=== PATIENT | female | born 1970 | race Two or more races ===

== ENCOUNTER 2020-04-28 14:30 | Outpatient (CLI) | payer OTHER ==
[~2020-04-28 14:30] MED LIST: SYNTHROID50 MCG PO
== END 2020-04-28 14:47 | disposition home or self-care (01) ==
LOC: NUCLEAR 14:30
PROVIDERS: ATTEND Internal Medicine Sports Medicine
DX: M81.0 Age-related osteoporosis without current pathological fracture (principal)

== ENCOUNTER 2024-04-03 12:44 | Outpatient (CLI) | payer OTHER | END 2024-04-03 12:55 | disposition home or self-care (01) | LOC: NUCLEAR 12:44 | PROVIDERS: ATTEND Internal Medicine Sports Medicine | DX: M81.0 Age-related osteoporosis without current pathological fracture (principal) ==

== ENCOUNTER 2024-04-28 08:40 | Outpatient (CLI) | payer OTHER ==
[2024-04-28 09:45] LABS: HEMOGLOBIN 12.4 g/dL (12.0-15.00); MEAN CELL VOLUME 89.8 fL (80.00-100.00); MEAN CORPUSCULAR HEMOGLOBIN 30.1 pg (27.00-32.0); MEAN CORPUSCULAR HGB CONC 33.6 g/dl (32.0-36.0); PLATELET COUNT 236 K/uL (150-450); RED BLOOD COUNT 4.12 M/uL (4.00-6.00); RED CELL DISTRIBUTION WIDTH 13.8 % (11.5-14.5)
[2024-04-28 09:49] LABS: URINE APPEARANCE Clear; URINE BILIRRUBIN Negative (NEGATIVE); URINE BLOOD Negative; URINE COLOR Yellow; URINE GLUCOSE Negative (NEGATIVE); URINE KETONE Negative (NEGATIVE); URINE LEUKOCYTE Trace; URINE NITRATE Negative; URINE PROTEIN Negative (NEGATIVE); URINE UROBILINOGEN 0.2 E.U./dl
[2024-04-28 09:50] LABS: URINE BACTERIA 391.8 uL (0.0-1933); URINE EPITHELIAL CELLS 15.6 uL (0.0-38.8); URINE RBC 7.4 uL (0.0-20.8); URINE WBC 23.3 uL (0.0-23.2)
[2024-04-28 10:50] LABS: BILIRUBIN TOTAL 1.49 mg/dL (0.3-1.2); CHOL HDL RATIO 3.6 (0-5.0); CREATININE SERUM 0.76 mg/dL (0.55-1.02); GFR 79.31; GLOBULINA 3.8 G/DL (2.4-3.5); POTASSIUM 3.39 mEq/L (3.5-5.1); T4 FREE 1.44 NG/ML (0.76-1.46); TOTAL PROTEIN 7.8 gm/dL (6.4-8.2); TSH 0.463 uIU/mL (0.358-3.74)
== END 2024-04-28 08:47 | disposition home or self-care (01) ==
LOC: LAB 08:40
PROVIDERS: ATTEND Internal Medicine Sports Medicine
DX: E55.9 Vitamin D deficiency, unspecified (principal); D64.9 Anemia, unspecified; E11.9 Type 2 diabetes mellitus without complications; E78.2 Mixed hyperlipidemia; I10 Essential (primary) hypertension; E03.8 Other specified hypothyroidism

== ENCOUNTER 2024-05-26 09:06 | Outpatient (CLI) | payer OTHER | END 2024-05-26 09:18 | disposition home or self-care (01) | LOC: MAMO-SONO 09:06 | PROVIDERS: ATTEND Internal Medicine Sports Medicine | DX: Z12.39 Encounter for other screening for malignant neoplasm of breast (principal) ==

== ENCOUNTER 2025-02-19 17:10 | Emergency (ER) | payer OTHER ==
[~2025-02-19] VITALS: Ht 177.8 cm; Wt 79.4 kg
[2025-02-19] MEDS ORDERED: CEFTRIAXONE SODIUM 1,000 MG VIAL IM STA (18:50)
[2025-02-19] MEDS ORDERED: CEFTRIAXONE SODIUM 1,000 MG VIAL ONE (18:59)
[2025-02-19 19:34] LABS: BASO % 0.7 % (0.1-1.2); EOS # 0.30 (0.04-0.54); EOS % 3.5 % (0.7-7.0); LYMPH # 2.21 (1.18-3.74); LYMPH % 25.6 % (19.3-53.1); MEAN PLATELET VOLUME 10.60 fl (9.4-12.4); MONO # 0.61 (0.24-0.82); MONO % 7.1 % (4.7-12.5); NEUT # 5.43 (1.56-6.13); NEUT % 62.8 % (34.0-71.1); RED CELL DISTRIBUTION WIDTH 13.1 % (11.6-14.4)
[2025-02-19 19:35] LABS: ERYTHROCYTE SEDIMENTATION RATE 38 mm/hr (0-30)
[2025-02-19] MEDS ORDERED: DUI500 PO (21:06)
== END 2025-02-19 21:22 | disposition home or self-care (01) ==
LOC: ER 17:10
PROVIDERS: Emergency Medicine
DX: L03.114 Cellulitis of left upper limb (principal)

== ENCOUNTER 2025-02-25 20:32 | Emergency (ER) | payer OTHER ==
[~2025-02-25] VITALS: Ht 177.8 cm; Wt 81.2 kg
[~2025-02-25 20:32] MED LIST changes: +DUI500 PO
[2025-02-25 21:56] LABS: BASO % 0.7 % (0.1-1.2); EOS # 0.32 (0.04-0.54); EOS % 4.2 % (0.7-7.0); LYMPH # 2.14 (1.18-3.74); LYMPH % 28.2 % (19.3-53.1); MEAN PLATELET VOLUME 10.60 fl (9.4-12.4); MONO # 0.58 (0.24-0.82); MONO % 7.6 % (4.7-12.5); NEUT # 4.49 (1.56-6.13); NEUT % 59.0 % (34.0-71.1); RED CELL DISTRIBUTION WIDTH 13.0 % (11.6-14.4)
[2025-02-25 22:07] LABS: ERYTHROCYTE SEDIMENTATION RATE 48 mm/hr (0-30)
== END 2025-02-25 22:41 | disposition home or self-care (01) ==
LOC: ER 20:32
PROVIDERS: General Practice
DX: L03.114 Cellulitis of left upper limb (principal)

== ENCOUNTER 2025-02-26 11:55 | Outpatient (CLI) | payer OTHER | END 2025-02-26 11:58 | disposition home or self-care (01) | LOC: LAB 11:55 | PROVIDERS: ATTEND Specialist | DX: L02.91 Cutaneous abscess, unspecified (principal) ==

== ENCOUNTER 2025-04-08 13:29 | Outpatient (CLI) | payer OTHER | END 2025-04-08 13:38 | disposition home or self-care (01) | LOC: SONOGRAMA 13:29 | PROVIDERS: ATTEND Internal Medicine Sports Medicine | DX: C73 Malignant neoplasm of thyroid gland (principal) ==